=== PATIENT | male | born 1980 | race Hispanic/Latino ===

== ENCOUNTER 2021-02-08 08:40 | Emergency (ER) | payer OTHER ==
[~2021-02-08] VITALS: Ht 177.8 cm; Wt 83.9 kg
[2021-02-08 09:24] LABS: BASOPHILS % (AUTO) 0.7 % (0.0-5.0); EOSINOPHILS % (AUTO) 6.4 % (0.0-8.0); HEMATOCRIT 43.3 % (42-54); LYMPHOCYTES % (AUTO) 25.4 % (21.0-51.0); MEAN CORPUSCULAR HEMOGLOBIN 28.4 pg (27.0-33.0); MEAN CORPUSCULAR HGB CONC 35.1 g/dL (32.0-36.0); MEAN CORPUSCULAR VOLUME 80.9 fL (79-99); MONOCYTES % (AUTO) 7.2 % (3.0-13.0); NEUTROPHILS % (AUTO) 59.6 % (40.0-77.0); PLATELET COUNT (AUTO) 243 K/uL (130-400); RED BLOOD CELL COUNT(AUTO) 5.35 MIL/uL (4.50-6.20); RED CELL DISTRIBUTION WIDTH 12.3 % (11.0-15.5); WHITE BLOOD COUNT (AUTO) 7.7 K/uL (4.8-10.8)
[2021-02-08] MEDS ORDERED: ACETAMINOPHEN 325 MG TAB PO ONE (09:30)
[2021-02-08 09:43] LABS: CREATININE 1.1 mg/dL (0.5-1.5); POTASSIUM 4.1 mmol/L (3.5-5.1)
[2021-02-08 09:46] LABS: AMPHET/METH SCREEN,URINE NEGATIVE (NEGATIVE); APPEARANCE,URINE Clear (CLEAR); BARBITURATE SCREEN, URINE NEGATIVE (NEGATIVE); BENZODIAZEPINES SCREEN,URINE NEGATIVE (NEGATIVE); BILIRUBIN,URINE Negative (NEGATIVE); CANNABINOID SCREEN,URINE NEGATIVE (NEGATIVE); COCAINE SCREEN,URINE NEGATIVE (NEGATIVE); COLOR,URINE Yellow (YELLOW); GLUCOSE, URINE (UA) Negative (NEGATIVE); KETONES,URINE Trace mg/dL (NEGATIVE); LEUKOCYTE ESTERASE ,URINE Negative (NEGATIVE); NITRATE,URINE Negative (NEGATIVE); OCCULT BLOOD,URINE Negative (NEGATIVE); OPIATE SCREEN,URINE NEGATIVE (NEGATIVE); PH,URINE 5.5 (5.0-8.0); PHENCYCLIDINE SCREEN,URINE NEGATIVE (NEGATIVE); PROTEIN,URINE Negative (NEGATIVE); UROBILINOGEN,URINE 0.2 mg/dL (0.2-1.0)
[2021-02-08 09:48] LABS: ALBUMIN 3.8 g/dL (3.5-5.0); BILIRUBIN,TOTAL 0.6 mg/dL (0.2-1.0); TOTAL PROTEIN, SERUM 7.5 g/dL (6.0-8.3)
[2021-02-08 09:50] LABS: BACTERIA,URINE Rare /HPF (None Seen); MUCUS,URINE Few LPF (None Seen); RBC,URINE 0-1 /HPF (0-1); SQUAMOUS EPITHELIAL CELL,UR Rare /HPF (0-2); WBC,URINE 0-1 /HPF (0-1)
[2021-02-08] MEDS ORDERED: KETOROLAC 30MG VIAL (30MG/ML) ONE (10:46)
[2021-02-08] MEDS ORDERED: CYCLOBENZAPRINE HCL 10 MG TABLET ONE (10:47)
[2021-02-08] MEDS ORDERED: CYCLOBENZAPRINE HCL 10 MG TABLET PO ONE (11:00)
[2021-02-08] MEDS ORDERED: KETOROLAC 30MG VIAL (30MG/ML) IM ONE (11:00)
[2021-02-08] MEDS ORDERED: METH-662 PO (11:25)
[2021-02-08] MEDS ORDERED: NAPR-1196 PO (11:25)
[2021-02-08 11:29] VITALS: BP 172/78
== END 2021-02-08 11:36 | disposition home or self-care (01) ==
LOC: EDH 08:40
DX: M62.830 Muscle spasm of back (principal)
CPT/HCPCS: 36415; 72072; 80053; 80305; 81001; 84484; 85025; 93005; 96372; 99285; J1885